=== PATIENT | female | born 1950 | race Caucasian/White ===

== ENCOUNTER → 2016-08-17 | Outpatient (CLI) | payer MEDICARE, OTHER ==
--- NOTE | 2016-08-17 14:43 | REPMRS ---
Patient History The patient states she had a clinical breast exam in 07/2016. Patient is postmenopausal and is nulliparous. Family history of premenopausal breast cancer in mother at age 77. Digital Woman Screen Mammo: August 17, 2016 - Exam #: [id number] Bilateral CC and MLO view(s) were taken. Technologist: Genevieve Grajeda, Technologist Prior study comparison: June 04, 2015, digital woman screen mammo performed at [facility] to [facility]. May 28, 2014, digital woman screen mammo performed at [facility] to [facility]. FINDINGS: There are scattered fibroglandular densities. There has been no change in the appearance of the mammogram from the prior studies. There is a mild amount of residual fibroglandular tissue which is fairly symmetric. There is no interval development of dominant mass, architectural distortion, or clustered microcalcification suggestive of malignancy. ASSESSMENT: BI-RADS/ACR category 1 mammogram. Negative. Recommendation Routine screening mammogram in 1 year (for women over age 40). This mammogram was interpreted with the aid of an FDA-approved computer-aided dectection system. Electronically Signed By: Jerson Gomes MD 08/17/16 [id number]
== END ==
LOC: M WHC 13:34
PROVIDERS: ATTEND Nurse Practitioner Family
DX: Z01.419 Encounter for gynecological examination (general) (routine) without abnormal findings (principal); Z12.31 Encounter for screening mammogram for malignant neoplasm of breast; Z78.0 Asymptomatic menopausal state; Z92.89 Personal history of other medical treatment; Z80.3 Family history of malignant neoplasm of breast; Z79.899 Other long term (current) drug therapy; A60.00 Herpesviral infection of urogenital system, unspecified; Z12.12 Encounter for screening for malignant neoplasm of rectum
CPT/HCPCS: 82270; G0101; G0123; G0202

== ENCOUNTER → 2017-08-25 | Outpatient (CLI) | payer MEDICARE, OTHER | LOC: M WHC 14:31 | DX: Z12.31 Encounter for screening mammogram for malignant neoplasm of breast (principal); E65 Localized adiposity; N95.9 Unspecified menopausal and perimenopausal disorder; Z78.0 Asymptomatic menopausal state; Z80.3 Family history of malignant neoplasm of breast; M81.0 Age-related osteoporosis without current pathological fracture; Z12.4 Encounter for screening for malignant neoplasm of cervix | CPT/HCPCS: 77067 ==

== ENCOUNTER → 2018-11-02 | Outpatient (REF) | payer MEDICARE, OTHER | LOC: M SFHCWAGY 13:40 | PROVIDERS: ATTEND Nurse Practitioner Family | DX: Z12.4 Encounter for screening for malignant neoplasm of cervix (principal); N39.3 Stress incontinence (female) (male); N95.8 Other specified menopausal and perimenopausal disorders | CPT/HCPCS: 87086; G0123 ==

== ENCOUNTER → 2018-11-02 | Outpatient (CLI) | payer MEDICARE, OTHER ==
--- NOTE | 2018-11-02 14:54 | REPMRS ---
Patient History The patient states she had a clinical breast exam in 10/2018. Family history of premenopausal breast cancer at age 77 in mother. 3D TOMOSYNTHESIS WAS PERFORMED. Digital Woman Screen Mammo: November 02, 2018 - Exam #: [id number] Bilateral CC and MLO view(s) were taken. Technologist: Cassi Ledesma, Technologist Prior study comparison: August 25, 2017, digital woman screen mammo performed at [facility]. August 17, 2016, digital woman screen mammo performed at [facility]. FINDINGS: There are scattered fibroglandular densities. There has been no change in the appearance of the mammogram from the prior studies. There is a mild amount of residual fibroglandular tissue which is fairly symmetric. There is no interval development of dominant mass, architectural distortion, or clustered microcalcification suggestive of malignancy. Assessment: BI-RADS/ACR category 1 mammogram. Negative Mammogram. Recommendation Routine screening mammogram in 1 year (for women over age 40). This mammogram was interpreted with the aid of an FDA-approved computer-aided dectection system. Electronically Signed By: Jerson Gomes MD 11/02/18 [id number]
== END ==
LOC: M WHC 13:22
PROVIDERS: ATTEND Hospitalist
DX: Z01.419 Encounter for gynecological examination (general) (routine) without abnormal findings (principal); Z12.31 Encounter for screening mammogram for malignant neoplasm of breast; Z80.3 Family history of malignant neoplasm of breast; N39.3 Stress incontinence (female) (male)
CPT/HCPCS: 77063; 77067; 81002; 87086; 87210; G0123

== ENCOUNTER → 2019-04-02 | Outpatient (CLI) | payer MEDICARE, OTHER ==
[~2019-04-02] MED LIST: ACET650T15 PO; CVS2500C PO; DYMI137S; HM P99TA PO; LEVO150T7 PO; LIDO1PAD TOP; MONT10TA2 PO; OLOP0.1D OU; PRAV40TA2 PO; PROAAER10 INH; VITA30004 PO; allergy shots; bariatric fusion PO
--- NOTE | 2019-04-02 11:27 | REP ---
PA and lateral chest: There are no comparisons. The lung olivas are clear. The cardiac size is normal. The torin, mediastinum, and skeletal structures are unremarkable. Impression: Negative PA and lateral chest. Electronically Signed by Jerson Farah MD 04/02/2019 11:20 A
[2019-04-02 11:58] LABS: HEMATOCRIT 41.2 % (36.0-47.0); MEAN CORPUSCULAR HEMOGLOBIN 29.3 pg (27.0-33.0); MEAN CORPUSCULAR HGB CONC 31.6 g/dl (32.0-36.5); MEAN CORPUSCULAR VOLUME 92.8 fl (80.0-96.0); PLATELET COUNT, AUTOMATED 277 10^3/uL (150-450); RED BLOOD COUNT 4.44 10^6/uL (4.00-5.40); WHITE BLOOD COUNT 8.9 10^3/uL (4.0-10.0)
[2019-04-02 12:20] LABS: ERYTHROCYTE SEDIMENTATION RATE 43 mm/hr (0-30)
[2019-04-02 12:28] LABS: ALBUMIN 3.5 GM/DL (3.2-5.2); ALT/SGPT 18 U/L (12-78); BILIRUBIN,TOTAL 0.4 MG/DL (0.2-1.0); BLOOD UREA NITROGEN 17 MG/DL (7-18); CALCIUM LEVEL 8.9 MG/DL (8.8-10.2); CARBON DIOXIDE LEVEL 25 MEQ/L (21-32); CHLORIDE LEVEL 106 MEQ/L (98-107); CREATININE FOR GFR 0.66 MG/DL (0.55-1.30); GLOMERULAR FILTRATION RATE > 60.0 (>45); GLUCOSE, FASTING 104 MG/DL (70-100); POTASSIUM SERUM 4.3 MEQ/L (3.5-5.1); SODIUM LEVEL 140 MEQ/L (136-145); TOTAL PROTEIN 7.1 GM/DL (6.4-8.2)
--- NOTE | 2019-04-02 21:50 | ECGEPIP ---
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
== END ==
LOC: M LAB 10:35
PROVIDERS: ATTEND Orthopaedic Surgery
DX: Z01.818 Encounter for other preprocedural examination (principal); M17.12 Unilateral primary osteoarthritis, left knee

== ENCOUNTER 2019-04-24 07:11 | Inpatient (IN) | payer MEDICARE, OTHER ==
--- NOTE | 2019-04-17 23:08 | HPE ---
DATE OF PLANNED ADMISSION: 04/24/2019 CHIEF COMPLAINT: Left knee pain and stiffness. This is a pleasant 68-year-old female patient with progressively worsening left knee pain and stiffness. She has failed to improve conservative management to include injections, rest, activity modifications. She has pain with weightbearing activities, walking, climbing stairs and kneeling. It affects her activities of daily living. She has elected for surgery for these continued symptoms. She has consented for a left total knee arthroplasty by Dr. Almaguer. X-rays of the left knee notable for bone on bone of the medial compartment and advanced tricompartmental degenerative changes of the left knee. ALLERGIES: NYSTATIN and SULFA DRUGS. CURRENT MEDICATIONS: - levothyroxine 150 mg once daily - pravastatin 40 mg once daily - vitamin D3 6000 units daily - bariatric fusion chewable vitamins 4 tablets daily - vitamin B12 500 mg once daily - potassium 99 mg once daily - as needed albuterol inhaler 90 mcg - Dymista nasal spray - Olopatadine - valacyclovir 500 mg PAST MEDICAL HISTORY: Diabetes. She is longer being treated for. Allergies. Hyperlipidemia. PAST SURGICAL HISTORY: Thyroidectomy 1974. Bariatric surgery 2014. Cholecystectomy 1989 SOCIAL HISTORY: She does not smoke and she occasionally drinks. REVIEW OF SYSTEMS: Denies fevers, chills, chest pain, shortness of breath or cough. Denies difficulty breathing, denies abdominal pain. Denies nausea or vomiting. Has persistent pain in her left knee with weightbearing activities. Denies upper respiratory infection (URI) or urinary tract infection (UTI) symptoms VITAL SIGNS: Height 63 inches, weight 258.4 pounds, temperature 97.5, blood pressure 124/84, pulse 62. Respiratory rate 17. PHYSICAL EXAMINATION: Reveals a well-nourished, well-developed alert female patient who walks with a slight limping gait favoring her left knee. Exam of left knee: Skin to be intact. There is no erythema, edema or ecchymosis. Tenderness over the anterior and medial aspect of the right knee. Range of motion is 105 degrees on exam. Stable to varus and valgus stress. There is no perfused left lower extremity. NECK: Supple without adenopathy or jugular venous distention (JVD). LUNGS: Clear to auscultation without rales or wheeze. HEART: Regular rate and rhythm. ABDOMEN: Bowel sounds present. EKG: Noted for sinus rhythm. Chest x-ray: No acute cardiopulmonary process noted. White count 89, red count 4.44. Hemoglobin 13, hematocrit 41.2. Erythrocyte sedimentation rate of 43. Fasting glucose 104. BUN 17, creatinine 0.66. GFR greater than 60. Sodium 140, potassium 43. Anion gap of 9. Preoperative medical optimization by Dr. Antonio Mandel is not present for review today. IMPRESSION: Symptomatic osteoarthritis of her left knee. PLAN: Consented for left total knee arthroplasty by Dr. Almaguer.
[~2019-04-24] VITALS: Ht 161.3 cm; Wt 114.7 kg
[2019-04-24] VITALS (7 sets, daily range): BP systolic 112–137; BP diastolic 58–78
[~2019-04-24 07:11] MED LIST changes: +ACETAMINOPHEN 500 MG TAB PO ONE; +LR 1,000 ML IV ONE; +ceFAZolin SOD 2 GM in IV 1 EA IV ONE
[2019-04-24 08:11] LABS: INR 1.02; PROTHROMBIN TIME 13.1 SECONDS (11.8-14.0)
[2019-04-24] MEDS ORDERED: MIDAZOLAM INJ 2 MG/2 ML VIAL (J2250) As Ordered ONE ×3 (08:26→11:01)
[2019-04-24] MEDS ORDERED: fentaNYL 100 MCG/2 ML INJECTION (J3010) As Ordered ONE (08:26)
[2019-04-24] MEDS: OLOPATADINE 0.1% OPHTH SOL 5ML(PATANOL) OU SCH ×2 (09:00→20:46)
[2019-04-24] MEDS: MONTELUKAST 10 MG TAB PO SCH (09:00)
[2019-04-24] MEDS ORDERED: TRANEXAMIC ACID 100 MG/ML 10ML VIAL As Ordered ONE (09:09)
[2019-04-24] MEDS ORDERED: ceFAZolin 1GM INJ (J0690 PER 500MG) As Ordered ONE (09:10)
[2019-04-24] MEDS ORDERED: BUPIVACAINE LIPOSOME/PF 1.3% 20ML VIAL (13.3MG/ML)(EXPAREL)(C9290 PER1MG) As Ordered ONE (09:10)
[2019-04-24] MEDS ORDERED: EPINEPHrine INJ 1 MG/ML 1ML AMP As Ordered ONE (09:10)
[2019-04-24] MEDS ORDERED: fentaNYL 100 MCG/2 ML INJECTION (J3010) IV ONE (09:30)
[2019-04-24] MEDS ORDERED: MIDAZOLAM INJ 2 MG/2 ML VIAL (J2250) IV ONE (09:30)
[2019-04-24] MEDS ORDERED: PROPOFOL 200 MG/20 ML VIAL As Ordered ONE ×2 (10:01→12:08)
[2019-04-24] MEDS ORDERED: LIDOCAINE 2% INJ 100 MG/5 ML SDV (FOR ANES.) As Ordered ONE (10:01)
[2019-04-24] MEDS ORDERED: GLYCOPYRROLATE INJ 0.2 MG/ML 2 ML VIAL As Ordered ONE (10:44)
[2019-04-24] MEDS ORDERED: BUPIVACAINE HCL 0.25% 10 ML VIAL As Ordered ONE (10:57)
[2019-04-24] MEDS ORDERED: ROPIvacaine 0.5% 30 ML INJECTION (J2795 PER 1MG) ONE (11:21)
[2019-04-24] MEDS ORDERED: dexameTHASONE 10 MG/1 ML VIAL PRES.FREE (J1100) ONE (11:21)
[2019-04-24] MEDS ORDERED: PHENYLEPHRINE INJ 10MG/ML VIAL (J2370) As Ordered ONE ×2 (11:44→13:19)
[2019-04-24] MEDS ORDERED: ePHEDrine SULFATE 25 MG/5 ML(5MG/ML) SYRINGE As Ordered ONE (11:44)
[2019-04-24] MEDS ORDERED: ALBUTEROL SULFATE 2.5 MG/0.5 ML INH NEB SOLN NEB PRN (13:00)
[2019-04-24] MEDS: fentaNYL 100 MCG/2 ML INJECTION (J3010) IV PRN ×3 (13:02→13:30)
[2019-04-24] MEDS: PERCOCET 5MG/325MG TAB PO PRN ×4 (13:02→23:21)
[2019-04-24] MEDS ORDERED: ONDANSETRON 4MG/2ML VIAL (J2405) As Ordered ONE (13:02)
[2019-04-24] MEDS ORDERED: PERCOCET 5MG/325MG TAB As Ordered ONE (13:02)
[2019-04-24] MEDS ORDERED: LR 1,000 ML IV SCH ×2 (13:15)
[2019-04-24] MEDS ORDERED: FLEET ENEMA PR PRN (13:15)
[2019-04-24] MEDS ORDERED: ONDANSETRON 4MG/2ML VIAL (J2405) IV PRN (13:15)
[2019-04-24] MEDS ORDERED: ACETAMINOPHEN TAB 650MG DOSE (2X325MG) PO PRN (13:15)
[2019-04-24] MEDS ORDERED: HYDROMORPHONE HCL 0.5 MG/ 0.5 ML SYRINGE (J1170 PER 1) As Ordered ONE (13:35)
[2019-04-24] MEDS ORDERED: HYDROMORPHONE HCL 0.5 MG/ 0.5 ML SYRINGE (J1170 PER 1) IV PRN ×3 (13:45→14:45)
--- NOTE | 2019-04-24 14:00 | REP ---
LEFT KNEE: Two views. HISTORY: Postoperative placement. FINDINGS: Portably obtained AP and lateral views of the left knee demonstrate left knee arthroplasty components in good position relative to each other and their grindstone bones. Periarticular soft tissue emphysema and intra-articular gas are seen. Anterior skin jodie are noted. There is mild diffuse osteopenia. IMPRESSION: Status post left knee arthroplasty. Electronically Signed by Chirag Collins MD 04/24/2019 02:21 P
--- NOTE | 2019-04-24 15:07 | HPEPDOC ---
General Date of Admission Apr 24, 2019 at 07:11 Date of Service: Apr 24, 2019 Chief Complaint The patient is a 68-year-old female admitted with a reason for visit of Osteoarthritis Left Knee. Source: Patient, Old records History of Present Illness Consultation report. Consultation for management of medical commorbidities. HPI: 68 year old female with PMH of Morbid obesity s/p gastric bypass surgery in 2014, HENKO now resolved, Diabetes resolved after bypass surgery, Allergies. Hyperlipidemia , Post surgical hypothyroidism , osteoarthritis was admitted to the orthopedic service for left total knee replacement for advanced osteoarthri tis. Surgery was uneventful. At present pateint complains of pain in the knee joint about 4/10 just got pain meds, has an ice pack which is helping, dulling throbbing in nature located at the left knee surgical site without any radiation. Home Medications Scheduled Acetaminophen (Acetaminophen ER) 650 Mg Tablet.er, 1,300 MG PO BID, (Reported) Albuterol Sulfate (Proair Hfa) 8.5 Gm Hfa.aer.ad, 2 PUFF INH PRN, (Reported) Azelastine/Fluticasone (Dymista Nasal [place]) 23 Gm [place].pump, 1 SPR NA DAILYPRN, (Reported) Cholecalciferol (Vitamin D3) (Vitamin D3) 3,000 Unit Tablet, 3,000 UNIT PO DAILY, (Reported) Cyanocobalamin (Vitamin B-12) (Vitamin B12) 2,500 Mcg Tab.chew, 500 MCG PO BID, (Reported) Levothyroxine Sodium (Levothyroxine Sodium) 150 Mcg Tablet, 150 MCG PO DAILY, (Reported) Montelukast Sodium (Montelukast Sodium) 10 Mg Tablet, 10 MG PO PRN, (Reported) Olopatadine HCl (Olopatadine HCl) 0.1% 5ML Drops, 1 DROP OU BIDP, (Reported) Potassium Gluconate (Potassium) 99 Mg Tablet, 595 MG PO DAILY, (Reported) Pravastatin Sodium (Pravastatin Sodium) 40 Mg Tablet, 40 MG PO QPM, (Reported) [allergy shots ] , [id number], (Reported) [bariatric fusion] , 2 TABS PO BID, (Reported) Scheduled PRN Lidocaine (Lidocaine) 5% Adh..patch, 1 PATCH TOP DAILYPRN PRN for PAIN, (Reported) Allergies Coded Allergies: Sulfa (Sulfonamide Antibiotics) (Verified Allergy, Severe, swelling lips, eyes, tongue, 04/05/19) nystatin (Verified Allergy, Intermediate, rash, 04/05/19) ENVIROMENTAL (Verified Allergy, Unknown, 04/23/19) Past Medical History Medical History Morbid obesity s/p gastric bypass surgery in 2014, HENOK now resolved, Diabetes resolved after bypass surgery, Allergies. Hyperlipidemia , Post surgical hypothyroidism Surgical History Thyroidectomy for graves disease with goiter 1974. Bariatric surgery 2014. Cholecystectomy 1990 skin graft on the right upper arm at age 4yrs Family History Significant Family History: Cancer (mother breast cancer), Heart disease (father, grandfather), Other (thyroid disease in sisters, cousins. ) Social History * Smoker: Denies Alcohol: occationally Drugs: denies A-FIB/CHADSVASC A-FIB History Current/History of A-Fib/PAF?: No Review of Systems Constitutional: Denies: Chills, Fever, Night Sweats Eyes: Denies: Pain, Vision change ENT: Denies: Head Aches, Ear Pain, Dysphagia Skin: Denies: Rash, Lesions, Breakdown Pulmonary: Denies: Dyspnea, Cough Cardiovascular: Denies: Chest Pain, Palpitations, Orthopnea, Paroxysmal Noc. Dyspnea, Lt Headedness Gastrointestinal: Denies: Nausea, Vomiting, Abdominal Pain, Diarrhea Genitourinary: Denies: Dysuria, Frequency, Incontinence, Retention Musculoskeletal: Reports: Joint Pain (left knee pain) Neurological: Denies: Weakness, Numbness, Change in speech, Confusion Physical Examination General Exam: Positive: Alert, Cooperative, No Acute Distress Eye Exam: Positive: PERRLA, Conjunctiva & lids normal, EOMI; Negative: Sclera icteric ENT Exam: Positive: Atraumatic, Mucous membr. moist/pink, Pharynx Normal Neck Exam: Positive: Supple; Negative: JVD, thyromegaly Chest Exam: Positive: Clear to auscultation, Normal air movement Heart Exam: Positive: Rate Normal, Regular Rhythm, Normal S1, Normal S2; Negative: Murmurs, Rubs Abdomen Exam: Positive: Normal bowel sounds, Soft; Negative: Tenderness, Hepatospenomegaly Extremity Exam: Positive: Other (left knee in surgical dressing); Negative: Clubbing, Cyanosis, Edema Skin Exam: Positive: Nl turgor and temperature; Negative: Breakdown, Lesion Neuro Exam: Positive: Normal Speech, Strength at 5/5 X4 ext, Normal Tone Psych Exam: Positive: Memory Intact, Oriented x 3 Vital Signs Vital Signs Date Time Temp Pulse Resp B/P (MAP) Pulse Ox O2 Delivery O2 Flow Rate FiO2 04/24/19 13:59 97.8 59 16 122/60 (80) 96 Room Air 04/24/19 13:49 2 Laboratory Data Labs 24H Laboratory Tests 2 04/24/19 07:35: Prothrombin Time 13.1, Prothromb Time International Ratio 1.02 Assessment/Plan 68 year old female with PMH of Morbid obesity s/p gastric bypass surgery in 2014, HENOK now resolved, Diabetes resolved after bypass surgery, Allergies. Hyperlipidemia , Post surgical hypothyroidism , osteoarthritis was admitted to the orthopedic service for left total knee replacement for advanced osteoarthritis. I am seeing the pateint for medical management of her commorbidities Left total knee replacement pain control and dvt prophylaxis as per ortho PT and OT Secondary hypothyroidism s/p surgery for graves disease continue synthroid Hyperlipidemia stain Allergies flonase prn singulair and albuterol prn. Morbid obesity with HENOK follow HENOK protocol. Plan / VTE VTE Prophylaxis Ordered?: Yes HANNA EDDY MD Apr 24, 2019 15:06
[2019-04-24] MEDS ORDERED: ONDANSETRON 4 MG TAB (S0181) PO PRN (15:15)
[2019-04-24] MEDS: ceFAZolin SOD 2 GM in IV 1 EA IV SCH ×2 (16:58→22:23)
[2019-04-24] MEDS: PRAVASTATIN 20 MG TAB PO SCH (20:46)
[2019-04-25 02:00] VITALS: BP 118/67
[2019-04-25] MEDS: ceFAZolin SOD 2 GM in IV 1 EA IV SCH (04:15)
[2019-04-25] MEDS: PERCOCET 5MG/325MG TAB PO PRN ×5 (04:16→21:48)
[2019-04-25] MEDS: LEVOTHYROXINE 150MCG TABLET (0.15MG) PO SCH (05:23)
[2019-04-25 06:00] VITALS: BP 106/81
[2019-04-25 06:01] LABS: HEMATOCRIT 34.4 % (36.0-47.0); HEMOGLOBIN 10.8 g/dl (12.0-15.5); MEAN CORPUSCULAR HEMOGLOBIN 29.3 pg (27.0-33.0); MEAN CORPUSCULAR HGB CONC 31.4 g/dl (32.0-36.5); MEAN CORPUSCULAR VOLUME 93.5 fl (80.0-96.0); PLATELET COUNT, AUTOMATED 248 10^3/uL (150-450); RED BLOOD COUNT 3.68 10^6/uL (4.00-5.40); WHITE BLOOD COUNT 10.3 10^3/uL (4.0-10.0)
[2019-04-25 06:25] LABS: BLOOD UREA NITROGEN 11 MG/DL (7-18); CALCIUM LEVEL 8.3 MG/DL (8.8-10.2); CARBON DIOXIDE LEVEL 27 MEQ/L (21-32); CHLORIDE LEVEL 106 MEQ/L (98-107); CREATININE FOR GFR 0.65 MG/DL (0.55-1.30); GLOMERULAR FILTRATION RATE > 60.0 (>45); GLUCOSE, FASTING 157 MG/DL (70-100); POTASSIUM SERUM 3.8 MEQ/L (3.5-5.1); SODIUM LEVEL 138 MEQ/L (136-145)
[2019-04-25] MEDS ORDERED: PERC5TAB12 PO (07:12)
[2019-04-25] MEDS ORDERED: XARE10TA PO (07:12)
[2019-04-25] MEDS: MONTELUKAST 10 MG TAB PO SCH (08:49)
[2019-04-25] MEDS: SENOKOT S TAB PO SCH ×2 (08:49→21:48)
[2019-04-25] MEDS: MIRALAX *UNIT DOSE* 17GM PACKET PO SCH (08:50)
[2019-04-25] MEDS: OLOPATADINE 0.1% OPHTH SOL 5ML(PATANOL) OU SCH ×3 (08:50→21:00)
[2019-04-25] MEDS: MOM 30ML SUSPENSION UDC PO SCH (08:50)
--- NOTE | 2019-04-25 08:56 | IPNPDOC ---
Subjective Date Seen The patient was seen on 04/25/19. Subjective Chief Complaint/HPI Had an ok night but feeling nauseous now just after strting breakfast. Say has not had a bowel movement for 3 days. No fever or chills, No chest pain or sob. no abdominal pain or diarrhea. Objective Physical Examination General Exam: Positive: Alert, Cooperative, No Acute Distress Eye Exam: Positive: PERRLA, Conjunctiva & lids normal, EOMI ENT Exam: Positive: Atraumatic, Mucous membr. moist/pink, Pharynx Normal Neck Exam: Positive: Supple Chest Exam: Positive: Clear to auscultation, Normal air movement Heart Exam: Positive: Rate Normal, Regular Rhythm, Normal S1, Normal S2 Abdomen Exam: Positive: Normal bowel sounds, Soft Extremity Exam: Positive: Other Skin Exam: Positive: Nl turgor and temperature Neuro Exam: Positive: Normal Speech, Strength at 5/5 X4 ext, Normal Tone Psych Exam: Positive: Memory Intact, Oriented x 3 Assessment /Plan Assessment 68 year old female with PMH of Morbid obesity s/p gastric bypass surgery in 2014, HENOK now resolved, Diabetes resolved after bypass surgery, Allergies. Hyperlipidemia , Post surgical hypothyroidism , osteoarthritis was admitted to the orthopedic service for left total knee replacement for advanced osteoarthritis. I am seeing the pateint for medical management of her commorbidities Left total knee replacement pain control and dvt prophylaxis as per ortho PT and OT Secondary hypothyroidism s/p surgery for graves disease continue synthroid Hyperlipidemia stain Allergies flonase prn singulair and albuterol prn. Morbid obesity with HENOK follow HENOK protocol. Plan/VTE VTE Prophylaxis Ordered?: Yes VS, I&O, 24H, Fishbone Vital Signs/I&O Vital Signs Date Time Temp Pulse Resp B/P (MAP) Pulse Ox O2 Delivery O2 Flow Rate FiO2 04/25/19 08:50 20 04/25/19 06:00 97.9 63 106/81 (89) 98 Room Air 04/24/19 13:49 2 I&O- Last 24 Hours up to 6 AM 04/25/19 06:00 Intake Total 3410 ml Output Total 20 ml Balance 3390 ml Laboratory Data 24H LABS Laboratory Tests 2 04/25/19 05:49: Nucleated Red Blood Cells % (auto) 0.0, Anion Gap 5L, Glomerular Filtration Rate > 60.0, Calcium Level 8.3L CBC/BMP Laboratory Tests 04/25/19 05:49 HANNA EDDY MD Apr 25, 2019 08:56
[2019-04-25 10:00] VITALS: BP 136/71
[2019-04-25 14:00] VITALS: BP 132/69
--- NOTE | 2019-04-25 15:54 | RO ---
DATE OF PROCEDURE: 04/24/2019 PREPROCEDURE DIAGNOSIS: Left knee degenerative arthritis. POSTPROCEDURE DIAGNOSIS: Left knee degenerative arthritis. OPERATIVE PROCEDURE: Left total knee arthroplasty using a cruciate sacrificing size 6 femur, size 5 tibial tray, 10 mm rotating platform, posterior stabilized polyethylene insert and a 35 mm polyethylene button. All components were cemented. Prosthesis made by [employer]. It was an Attune knee. SURGEON: Long Almaguer MD SUPERVISORY FORESTER: Duy Borrego ANESTHESIA: Spinal with left femoral nerve block. COMPLICATIONS: None. ESTIMATED BLOOD LOSS: 20 mL SPECIMENS: Joint surface. DESCRIPTION OF PROCEDURE: Antibiotics were given intravenously preoperatively and a successful left femoral nerve block and then a spinal anesthetic was induced. A tourniquet was placed in the left upper thigh and not inflated. The left lower extremity was carefully prepped and draped in the usual sterile fashion, elevated and after appropriate time out the tourniquet was inflated. Longitudinal incision was made for a medial parapatellar approach to the knee. Bovie cautery used to coagulate crossing vessels. Medial parapatellar arthrotomy performed and subperiosteal dissection around the proximal, medial and lateral tibial plateaus performed. The patella was everted and the knee flexed. She had severe degenerative changes. There was basically an absent ACL and essentially an absent PCL. The drill was placed down the center of the femoral canal. Intramedullary torin placed and the distal femoral cutting jig set at 9 mm resection level, 5 degrees valgus for a left knee. It was pinned into position, distal femoral cut performed. AP sizing jig measured for a size 6. 6 degrees of external rotation were dialed in and then the pins placed and the four-in-one block applied. The bone was very soft. Anterior posterior chamfer cuts performed. When we were doing the chamfer cut there was noteworthy that the pins became very loose in the soft bone causing some deformity of the anterior chamfer. We then did the sulcus cut using the sulcus jig and then exposed the proximal tibia, referenced off the medial tibial condyle using the extramedullary cutting jig to estimated being parallel to the mechanical axis of the tibia. It was pinned into position and then the secondary check of extramedullary torin confirmed that we appeared to be parallel to the mechanical axis. Proximal tibial osteotomy was performed. We placed the laminar tobacco sieve operator laterally and performed a completion media meniscectomy, debridement of posterior medial osteophytes, then placed a laminar tobacco sieve operator medially and performed a completion lateral meniscectomy with debridement of posterolateral osteophytes. We then applied the spacer blocks and the 6 mm was quite loose. The 8 mm was actually a bit too lax and the 10 mm we felt would be acceptable. However, at this point given we were using 10 mm of spacer and there is minimal PCL noted remaining, I felt it best to convert to a PCL sacrificing construct. We exposed the proximal tibia sized for a #5 tibial tray which was pinned into position followed by the reamer and broach, and then the osteotomy jig for the notch cut for the femur was then pinned into position. Then, the notch plasty was performed and a size 6 femoral component was placed. It was noteworthy that that anterior chamfer cut caused some gapping just over the chamfer, but the alignment was anatomic against the anterior femur as well as the distal and posterior chamfers. We placed the polyethylene, brought the knee into extension and everted the patella, performed a patellar osteotomy sized for a 35 button. Lug holes drilled. Trial placed. Patellofemoral tracking was reasonable, but there was some excessive tightening in the lateral gutter. I did debride some soft tissue there and then I eventually did a formal lateral release taking great care to protect the superior lateral genicular vessels. This did improve the tracking. I drilled the lug holes for the femur at this point, removed all the trial components and placed Exparel in the subperiosteal tissues around the distal femur and the proximal tibia. Then my service assistant Mr. Duy Borrego mixed the cement on the back table as I prepared the bony surfaces for cementing with a copious amount of pulsatile lavage irrigant solution. Nahedantoine was also critical to the success of this difficult procedure. She had a very sizable leg, large soft tissue envelope. He applied appropriate soft tissue retraction, helped to manipulate the knee several knee throughout the operation so I could perform the operation smoothly, efficiently and safely as well as mixed the cement, prepared the patient, closed the wound amongst many other tasks. When all the bony surfaces were thoroughly dried, I cemented the tibial tray, removed excess cement and cemented the femoral component, removed excess cement, placed the polyethylene and brought the knee into extension, then cemented the patellar button, held it with a clamp with the knee in extension. Then removed excess cement. As we were waiting for the cement to harden, I copiously irrigated out the knee joint and instilled tranexamic acid, then began closing the apex of the arthrotomy with two #1 PDS sutures and the medial parapatellar area was closed with a #1 PDS suture. Then we had a running double arm #1 Stratafix used to close the capsule, then the tourniquet was released. We irrigated between layers, closed the deep subdermal tissues with interrupted #2-0 PDS sutures. Skin was closed with jodie, covered by an Optifoam dry sterile bulky dressing. She was then transferred to the recovery room in stable condition. There were no intraoperative complications.
[2019-04-25 18:00] VITALS: BP 125/58
[2019-04-25] MEDS ORDERED: RIVAROXABAN 10 MG TAB (XARELTO) PO SCH (18:00)
[2019-04-25 20:38] VITALS: BP 143/79
[2019-04-25] MEDS: PRAVASTATIN 20 MG TAB PO SCH (21:48)
[2019-04-26] MEDS: PERCOCET 5MG/325MG TAB PO PRN ×3 (02:12→11:27)
[2019-04-26 05:44] VITALS: BP 141/75
[2019-04-26 05:57] LABS: HEMATOCRIT 35.7 % (36.0-47.0); HEMOGLOBIN 11.3 g/dl (12.0-15.5); MEAN CORPUSCULAR HGB CONC 31.7 g/dl (32.0-36.5); MEAN CORPUSCULAR VOLUME 91.8 fl (80.0-96.0); PLATELET COUNT, AUTOMATED 263 10^3/uL (150-450); RED BLOOD COUNT 3.89 10^6/uL (4.00-5.40); WHITE BLOOD COUNT 9.3 10^3/uL (4.0-10.0)
[2019-04-26] MEDS ORDERED: XARE10TA PO ×2 (06:10→07:44)
[2019-04-26 06:17] LABS: BLOOD UREA NITROGEN 10 MG/DL (7-18); CALCIUM LEVEL 8.5 MG/DL (8.8-10.2); CARBON DIOXIDE LEVEL 30 MEQ/L (21-32); CHLORIDE LEVEL 104 MEQ/L (98-107); CREATININE FOR GFR 0.56 MG/DL (0.55-1.30); GLOMERULAR FILTRATION RATE > 60.0 (>45); GLUCOSE, FASTING 118 MG/DL (70-100); POTASSIUM SERUM 3.7 MEQ/L (3.5-5.1); SODIUM LEVEL 138 MEQ/L (136-145)
[2019-04-26] MEDS: LEVOTHYROXINE 150MCG TABLET (0.15MG) PO SCH (06:22)
[2019-04-26] MEDS ORDERED: PERC5TAB12 PO (07:44)
[2019-04-26] MEDS: SENOKOT S TAB PO SCH (08:57)
[2019-04-26] MEDS: MIRALAX *UNIT DOSE* 17GM PACKET PO SCH (08:57)
[2019-04-26] MEDS: OLOPATADINE 0.1% OPHTH SOL 5ML(PATANOL) OU SCH (08:57)
[2019-04-26] MEDS: MONTELUKAST 10 MG TAB PO SCH (08:57)
[2019-04-26] MEDS: MOM 30ML SUSPENSION UDC PO SCH (08:58)
--- NOTE | 2019-04-30 15:52 | DSES ---
DATE OF ADMISSION: 04/24/2019 DATE OF DISCHARGE: 04/26/2019 ADMISSION DIAGNOSIS: Osteoarthritis left knee. OTHER DIAGNOSES: Hypothyroidism, elevated lipids, seasonal allergies, history of diabetes, morbid obesity, status post gastric bypass surgery. DISCHARGE DIAGNOSIS: Osteoarthritis left knee status post left total knee arthroplasty. OPERATION PERFORMED: Left total knee arthroplasty. HISTORY: 68-year-old female patient with progressive worsening left knee pain and stiffness. She failed to improve with conservative measures. She was admitted for elective knee replacement on the left side. HOSPITAL COURSE: The patient was admitted on day of surgery and underwent a left total knee arthroplasty, which was uneventful. She did well in the postoperative period and hospital course without complications. She was up with physical therapy per their protocol. Her pain was controlled on day of discharge. She was doing well, weightbearing as tolerated on the left lower extremity. She will use CRISTOBAL stockings for 30 days postoperative for deep vein thrombosis (DVT) prophylaxis. She will also use Xarelto 10 mg per the protocol for DVT prophylaxis. She will resume her preoperative medications and diet. She was given instructions to include but not limited to wound monitoring and activity limitations. She will follow up in our office in 10-14 days for surgical followup. Please refer to the medical record for further details.
== END 2019-04-26 14:15 | disposition home health service (06) | DRG 470 ==
LOC: M OR 07:11 → M MS5PR 14:10
PROVIDERS: ADMIT Orthopaedic Surgery; ATTEND Orthopaedic Surgery
PROC: 0SRD0J9 Replacement of Left Knee Joint with Synthetic Substitute, Cemented, Open Approach (ICD-10-PCS; principal; 2019-04-24 09:50)
DX: M17.12 Unilateral primary osteoarthritis, left knee (principal); Z68.41 Body mass index [BMI] 40.0-44.9, adult; Z88.2 Allergy status to sulfonamides; Z88.8 Allergy status to other drugs, medicaments and biological substances; E78.5 Hyperlipidemia, unspecified; E89.0 Postprocedural hypothyroidism; Z91.09 Other allergy status, other than to drugs and biological substances; E66.01 Morbid (severe) obesity due to excess calories; Z86.39 Personal history of other endocrine, nutritional and metabolic disease; G47.33 Obstructive sleep apnea (adult) (pediatric); J30.2 Other seasonal allergic rhinitis; Z98.84 Bariatric surgery status; Z79.899 Other long term (current) drug therapy; Z90.49 Acquired absence of other specified parts of digestive tract

== ENCOUNTER → 2019-11-05 | Outpatient (CLI) | payer MEDICARE, BC ==
[~2019-11-05] MED LIST changes: -ACETAMINOPHEN 500 MG TAB PO ONE; -LR 1,000 ML IV ONE; -MONT10TA2 PO; +MONT10TA4 PO; +PERC5TAB12 PO; +XARE10TA PO; -ceFAZolin SOD 2 GM in IV 1 EA IV ONE
--- NOTE | 2019-11-05 15:01 | REPMRS ---
Patient History The patient states she had a clinical breast exam in October 2019. Family history of premenopausal breast cancer at age 77 in mother. 3D TOMOSYNTHESIS WAS PERFORMED. [facility] lifetime risk for breast cancer is 12.6%. JAKE Galan. Digital Woman Screen Mammo: November 05, 2019 - Exam #: [id number] Bilateral CC and MLO view(s) were taken. Technologist: Precious Olivares, Technologist Prior study comparison: November 02, 2018, bilateral digital woman screen mammo performed at [facility]. August 25, 2017, digital woman screen mammo performed at [facility]. FINDINGS: There are scattered fibroglandular densities. There has been no change in the appearance of the mammogram from the prior studies. There is a mild amount of residual fibroglandular tissue which is fairly symmetric. There is no interval development of dominant mass, architectural distortion, or clustered microcalcification suggestive of malignancy. Assessment: BI-RADS/ACR category 1 mammogram. Negative Mammogram. Recommendation Routine screening mammogram in 1 year (for women over age 40). This mammogram was interpreted with the aid of an FDA-approved computer-aided dectection system. Electronically Signed By: Jerson Gomes MD 11/05/19 [id number]
== END ==
LOC: M WHC 13:15
PROVIDERS: ATTEND Nurse Practitioner Family
DX: Z12.31 Encounter for screening mammogram for malignant neoplasm of breast (principal); Z80.3 Family history of malignant neoplasm of breast
CPT/HCPCS: 77063; 77067; G0463

== ENCOUNTER → 2020-12-02 | Outpatient (CLI) | payer MEDICARE, BC ==
[~2020-12-02] MED LIST changes: -HM P99TA PO; +MONT10TA10 PO; -MONT10TA4 PO; +POTA99TA14 PO
--- NOTE | 2020-12-02 16:52 | REPMRS ---
Patient History The patient states she had a clinical breast exam in November 2020. Family history of premenopausal breast cancer at age 77 in mother. Patient states no breast complaints today. Patient has signed MRS History Sheet. Digital Woman Screen Mammo: December 02, 2020 - Exam #: [id number] Bilateral CC and MLO view(s) were taken. Technologist: Cassi Ledesma, Technologist Prior study comparison: November 05, 2019, bilateral digital woman screen mammo performed at [facility]. November 02, 2018, bilateral digital woman screen mammo performed at [facility]. August 25, 2017, digital woman screen mammo performed at [facility]. FINDINGS: The breast tissue is almost entirely fat. The Volpara volumetric breast density category is: A. There has been no change in the appearance of the mammogram from the prior studies. There is no interval development of dominant mass, architectural distortion, or grouped microcalcification typical of malignancy. 3-D tomosynthesis shows no additional findings. Assessment: BI-RADS/ACR category 1 mammogram. Negative Mammogram. Recommendation Routine screening mammogram of both breasts in 1 year (for women over age 40). This patient's [facility] Lifetime Breast Cancer RIsk is estimated at 11.2 %. This mammogram was interpreted with the aid of an FDA-approved computer-aided dectection system. Electronically Signed By: Ravi Collins MD 12/02/20 [id number]
== END ==
LOC: M WHC 15:46
PROVIDERS: ATTEND Nurse Practitioner Women's Health
DX: Z12.31 Encounter for screening mammogram for malignant neoplasm of breast (principal); Z80.3 Family history of malignant neoplasm of breast
CPT/HCPCS: 77063; 77067; G0101

== ENCOUNTER → 2022-04-28 | Outpatient (CLI) | payer MEDICARE, BC ==
[~2022-04-28] MED LIST changes: -MONT10TA10 PO; +MONT10TA97 PO; -OLOP0.1D OU; +OLOP5DRO16 OU
== END ==
LOC: M WHC 10:04
PROVIDERS: ATTEND Nurse Practitioner Family
DX: Z12.31 Encounter for screening mammogram for malignant neoplasm of breast (principal)

== ENCOUNTER → 2022-04-28 | Outpatient (REF) | payer MEDICARE, BC | LOC: M PLALAB 15:12 | PROVIDERS: ATTEND Nurse Practitioner Family | DX: Z12.4 Encounter for screening for malignant neoplasm of cervix (principal) ==

== ENCOUNTER → 2023-03-31 | Outpatient (CLI) | payer MEDICARE, BC ==
[~2023-03-31] MED LIST changes: +ISOVUE-300 61% 100ML VIAL As Ordered ONE; +LIDOCAINE 1% MDV 20ML VIAL As Ordered ONE; -OLOP5DRO16 OU; +OLOP5DRO17 OU; +methylPREDNISolone SUSP 40MG/ML 1ML VIAL (DEPO MEDROL) As Ordered ONE
== END ==
LOC: M RAD 15:08
PROVIDERS: ATTEND Physician Assistant
DX: M16.12 Unilateral primary osteoarthritis, left hip (principal)
CPT/HCPCS: 20610; 77002; J1030; Q9967

== ENCOUNTER → 2023-05-19 | Outpatient (CLI) | payer MEDICARE, BC ==
[~2023-05-19] MED LIST changes: -ISOVUE-300 61% 100ML VIAL As Ordered ONE; -LIDOCAINE 1% MDV 20ML VIAL As Ordered ONE; -methylPREDNISolone SUSP 40MG/ML 1ML VIAL (DEPO MEDROL) As Ordered ONE
== END ==
LOC: M WHC 12:57
PROVIDERS: ATTEND Nurse Practitioner Family
DX: Z12.31 Encounter for screening mammogram for malignant neoplasm of breast (principal)

== ENCOUNTER → 2024-08-06 | Outpatient (CLI) | payer MEDICARE, BC | LOC: M WHC 11:04 | PROVIDERS: ATTEND Student in an Organized Health Care Education/Training Program | DX: M81.0 Age-related osteoporosis without current pathological fracture (principal) ==